=== PATIENT | male | born 1950 | race Native Hawaiian/Other Pacific Islander ===

== ENCOUNTER 2017-12-31 07:14 | Day surgery (SDC) | payer MEDICAID ==
[2017-12-31] MEDS ORDERED: Midazolam 2 MG/2 ML VIAL ONE (08:05)
[2017-12-31] MEDS ORDERED: Propofol 10 mg/ml Inj (20 ML) ONE (08:05)
[2017-12-31 08:46] VITALS: TEMP 97.8
[2017-12-31] MEDS ORDERED: Lactated Ringer's 500 ML IV SCH (09:00)
[2017-12-31 09:05] VITALS: O2SAT 98
[2017-12-31 09:52] VITALS: BP 126/71; PULSE 61; RESP 18
== END 2017-12-31 09:51 | disposition home or self-care (01) ==
LOC: C.ENDO 07:14
PROVIDERS: ATTEND Internal Medicine Gastroenterology
DX: K25.9 Gastric ulcer, unspecified as acute or chronic, without hemorrhage or perforation (principal); D12.2 Benign neoplasm of ascending colon; K29.70 Gastritis, unspecified, without bleeding
CPT/HCPCS: 43239; 45384; 82948; 88305; 88342; J2250; J2704; J7120